=== PATIENT | female | born 1955 | race Caucasian/White ===

== ENCOUNTER → 2017-03-08 | Outpatient (CLI) | payer BC ==
[~2017-03-08] VITALS: Ht 152.4 cm; Wt 123.4 kg
[~2017-03-08] MED LIST: ADVIL200 MG PO; SYSTANE BALANCE10 ML BOTH EYES; TYLENOL ARTHRI650 MG PO; ZESTRIL40 MG PO
== END | disposition home or self-care (01) ==
LOC: AMB 10:30
DX: Z12.11 Encounter for screening for malignant neoplasm of colon (principal); D12.0 Benign neoplasm of cecum; D12.2 Benign neoplasm of ascending colon; D12.3 Benign neoplasm of transverse colon; Z80.0 Family history of malignant neoplasm of digestive organs; Z83.71 Family history of colonic polyps
CPT/HCPCS: 88305; 93005